=== PATIENT | female | born 1955 ===

== ENCOUNTER → 2024-04-18 06:50 | Outpatient (REF) | payer OTHER, SELFPAY | LOC: MRI 06:50 | PROVIDERS: ATTENDING PHYSICIAN Physical Medicine & Rehabilitation; FAMILY PHYSICIAN Nurse Practitioner Adult Health; REFERRING PHYSICIAN Physician Assistant Medical | DX: M48.062 Spinal stenosis, lumbar region with neurogenic claudication (principal) | CPT/HCPCS: 72148 ==